=== PATIENT | male | born 1980 | race Caucasian/White ===

== ENCOUNTER 2023-04-12 11:45 | Emergency (ER) | payer OTHER ==
[2023-04-12] MEDS ORDERED: Ondansetron PF 4 MG/2 ML Vial ONE (12:33)
[2023-04-12 12:42] LABS: #Basophils 0.1 10x3/uL (0.0-0.2); #Eosinphils 0.1 10x3/uL (0.0-0.5); #Monocytes 0.6 10x3/uL (0.0-1.1); %Basophils 0.7 % (0.0-2.0); %Eosinophils 1.8 % (0.0-6.0); %Lymphocytes 19.5 % (18.0-47.0); %Monocytes 8.4 % (0.0-10.0); %Neutrophils 69.5 % (40.0-75.0); Hematocrit 43.7 % (38.8-50.0); Hemoglobin 15.3 g/dL (13.5-17.5); Mean Corpuscular Hemoglobin 31.4 pg (27.0-33.0); Mean Corpuscular Volume 89.5 fl (81.2-95.1); Mean Platelet Volume 11.4 fl (7.4-10.4); Platelet Count 234 10x3/uL (150-450); RBC Distribution Width 12.1 % (11.5-14.5); Red Blood Cell (RBC) Count 4.88 10x6/uL (4.32-5.72); White Blood Cell (WBC) Count 7.2 10x3/uL (3.5-10.5)
[2023-04-12 12:48] LABS: ALT (SGPT) 27 U/L (8-55); AST (SGOT) 27 U/L (5-34); Albumin 4.5 g/dL (3.5-5.0); Alkaline Phosphatase 59 U/L (40-110); Anion Gap 14 mmol/L (10-20); BUN (Urea Nitrogen) 21 mg/dL (8.9-20.6); Bilirubin, Total 0.9 mg/dL (0.2-1.2); CK (CPK) 577 U/L (30-200); Calc. Creatinine Clearance 0 mL/min (70-130); Calcium 9.1 mg/dL (7.8-10.44); Carbon Dioxide 24 mmol/L (22-29); Chloride 102 mmol/L (98-107); Estimated GFR 73; Globulin 2.5 g/dL (2.4-3.5); Glucose 152 mg/dL (70-105); Potassium 3.7 mmol/L (3.5-5.1); Sodium 136 mmol/L (136-145)
[2023-04-12 12:53] LABS: Troponin I Less than 0.010 ng/mL (< 0.028)
[2023-04-12 14:06] LABS: Bilirubin Neg (Negative); Blood, Urine Negative (Negative); Clarity Clear (Clear); Glucose, Urine (Dipstick) Normal (Negative); Ketone, Urine 15 mg/dL (Negative); Leukocyte 25 (Negative); Nitrite Negative (Negative); Protein, Urine (Dipstick) 30 mg/dl (Neg-Trace); Specific Gravity, Urine 1.025 (1.005-1.030)
[2023-04-12 15:02] LABS: Bacteria/HPF 2+ HPF (None Seen); CAUTI Indications for Culture Dysuria,urgency,freq; Mucous/LPF 4+ LPF (<2+); RBC/HPF 0-3 HPF (0-3)
[2023-04-12 15:04] LABS: Urine Culture Reflex No No
== END 2023-04-12 14:15 | disposition home or self-care (01) ==
LOC: CSHERS 11:45
DX: M62.82 Rhabdomyolysis (principal); E86.0 Dehydration; I95.1 Orthostatic hypotension; I10 Essential (primary) hypertension; F17.210 Nicotine dependence, cigarettes, uncomplicated
CPT/HCPCS: 71045; 80053; 81001; 82550; 84484; 85025; 93005; 96361; 96374; J2405

== ENCOUNTER 2023-05-04 07:43 | Emergency (ER) | payer OTHER ==
[2023-05-04] MEDS ORDERED: fentaNYL 50 mcg/mL 1 mL Vial ONE ×2 (08:28→11:19)
[2023-05-04] MEDS ORDERED: PHENYLEPHRINE-NS 100 MCG/ML 10 ML SYRINGE FS SCH (08:45)
[2023-05-04] MEDS ORDERED: Lidocaine 1% (PF) 30 ML VIAL ONE (12:16)
[2023-05-04 13:44] LABS: Actual Bicarbonate (HCO3v) 20.5 mEq/L (22-28); Analyzer IN Cardio CS ER; Base Excess -9.2 mEq/L (-2 - +2); Calcium, Ionized (venous) 1.13 mmol/L (1.16-1.32); Chloride (VBG) 100 mmol/L (98-106); Hematocrit-VBG 48 % (42.0-52.0); Hemoglobin (Hb) 16.4 g/dL (13.2-17.3); Potassium (VBG) 4.26 mmol/L (3.70-5.30); Puncture Site Other Site; RapidComm Collect By CBN; Sodium 140 mmol/L (133-146); pH (venous) 7.153 (7.32-7.43)
== END 2023-05-04 13:11 | disposition home or self-care (01) ==
LOC: CSHERS 07:43
DX: N48.30 Priapism, unspecified (principal); I10 Essential (primary) hypertension; F17.210 Nicotine dependence, cigarettes, uncomplicated; Z79.899 Other long term (current) drug therapy; R10.9 Unspecified abdominal pain
CPT/HCPCS: 36415; 80053; 82805; 85025; 96372; 96374; 96376; J2001; J3010

== ENCOUNTER 2023-07-16 22:18 | Emergency (ER) | payer OTHER ==
[2023-07-16] MEDS ORDERED: Morphine 10 MG/ML VIAL ONE (23:00)
[2023-07-16] MEDS ORDERED: Tetracaine 0.5% PF 4 ML BOT ONE (23:00)
[2023-07-17] MEDS ORDERED: Fluorescein Opthalmic Strip ONE (01:19)
[2023-07-17] MEDS ORDERED: Morphine 2 MG/ML VIAL ONE (01:54)
== END 2023-07-17 01:57 | disposition home or self-care (01) ==
LOC: CSHERS 22:18
DX: S05.12XA Contusion of eyeball and orbital tissues, left eye, initial encounter (principal); H11.32 Conjunctival hemorrhage, left eye; I10 Essential (primary) hypertension; F17.210 Nicotine dependence, cigarettes, uncomplicated; W22.8XXA Striking against or struck by other objects, initial encounter; Y93.89 Activity, other specified
CPT/HCPCS: 70480; 96372; J2270; J2272